=== PATIENT | male | born 1960 | race Caucasian/White ===

== ENCOUNTER 2019-01-03 11:53 | Inpatient (IN) | payer BC, OTHER ==
[~2019-01-03] VITALS: Ht 177.8 cm; Wt 98.9 kg
[2019-01-03] VITALS (217 sets, daily range): BP systolic 87–89; BP diastolic 59–60; PULSE 83–85; TEMP 98.2; O2SAT 76–100
[2019-01-03 12:52] LABS: ARTERIAL BLD GAS O2 SATURATION 91.9 % (92-100); ARTERIAL BLD GAS TCO2 CT 19.4; ARTERIAL BLOOD GAS BASE EXCESS -4.4 (-2-2); ARTERIAL BLOOD GAS HCO3 18.6 meq/L (22-26); ARTERIAL BLOOD GAS PCO2 26.5 mmHg (35-45); ARTERIAL BLOOD GAS pH 7.46 (7.35-7.45)
[2019-01-03 13:28] LABS: MEAN CELL VOLUME 71 fl (80.0-100.0); MEAN CORPUSCULAR HGB CONC 31 g/dl (33.0-37.0); MEAN PLATELET VOLUME 9.9 fl (7.4-10.4); PLATELET COUNT 290 K/mm3 (130-400); RED BLOOD COUNT 3.31 M/mm3 (4.20-5.60); REDCELL DISTRIBUTION WIDTH-CV 17.8 % (11.5-14.5)
[2019-01-03 13:33] LABS: ALBUMIN 2.6 gm/dL (3.5-5.0); BILIRUBIN,TOTAL 0.6 mg/dL (0.0-1.0); CALCIUM 9.2 mg/dL (8.4-10.2); CREATININE, serum 1.1 (0.66-1.25); HEMATOCRIT 23.5 % (42.0-52.0); HEMOGLOBIN 7.2 g/dl (13.5-18.0); MEAN CORPUSCULAR HEMOGLOBIN 22 pg (27.0-31.0); POTASSIUM 4.6 mmol/L (3.4-5.0); TOTAL PROTEIN 6.1 gm/dL (6.4-8.2)
[2019-01-03 13:43] LABS: TROPONIN-I 0.016 ng/mL (0.000-0.035)
[2019-01-03 13:45] LABS: BAND 35 % (0-10); LYMPHOCYTE 11 % (20.0-51.0); NEUTROPHILS 49 % (42.0-75.2); PLATELET ESTIMATE NORMAL (NORMAL)
[2019-01-03] MEDS ORDERED: ASPIRIN 81M81 MG/TA2 PO (16:04)
[2019-01-03] MEDS ORDERED: COREG 6.256.25 MG/TA PO (16:05)
[2019-01-03] MEDS ORDERED: BACTRIM DS 8001 TAB PO (16:06)
[2019-01-03] MEDS ORDERED: LIPITOR 10MG10 MG PO (16:07)
[2019-01-03] MEDS ORDERED: NEURONTIN100 MG/CAP PO (16:07)
[2019-01-03] MEDS ORDERED: GLUCOPHAGE1000 MG PO (16:08)
[2019-01-03] MEDS ORDERED: PRINIVIL5 MG PO (16:08)
[2019-01-03] MEDS ORDERED: XARELTO20 MG PO (16:09)
[2019-01-03] MEDS ORDERED: BASAGLAR K100 UNIT/1 SQ (16:10)
[2019-01-03] MEDS ORDERED: NOVOLOG FLEX100 U/ML SQ (16:10)
[2019-01-03] MEDS ORDERED: MASON NATURAL S1 CAP PO (16:11)
[2019-01-03 18:32] LABS: IRON,SERUM 12 ug/dL (35-150)
[2019-01-03 18:41] LABS: TOTAL IRON BINDING CAPACITY 152 ug/dL (261-462)
[2019-01-03 19:08] LABS: FERRITIN 490 ng/mL (18-464)
[2019-01-03 19:16] LABS: MAGNESIUM 1.5 mg/dL (1.6-2.3); PHOSPHOROUS 4.3 mg/dL (2.5-4.5)
[2019-01-03 19:28] LABS: TROPONIN-I 3 HR POST INITIAL < 0.012 ng/mL (0.000-0.034)
--- NOTE | 2019-01-03 19:30 | NUR ---
Bedside report received from River Posadas RN. Pt resting in bed at this time with girlfriend at bedside "waiting for Dr. Diane" to arrive for assessment and plan.
--- NOTE | 2019-01-03 19:41 | NUR ---
Bedside report given to AIMEE Florez.
--- NOTE | 2019-01-03 20:34 | NUR ---
Admission assessment complete at this time. Plan of care reviewed at bedside with patient. Additional time taken to address any other needs or concerns.
[2019-01-04] VITALS (606 sets, daily range): BP systolic 79–128; BP diastolic 48–81; PULSE 81–111; TEMP 97.7–102.1; O2SAT 67–100
--- NOTE | 2019-01-04 01:15 | NUR ---
Pt noted to be sleeping at this time with sats dropping into the lower 90's. Applied 2L oxygen via NC with improvement in sats noted.
--- NOTE | 2019-01-04 03:20 | NUR ---
Prior to completion of 1 unit of PRBC's pts temp/ VS were assessed and demonstrated elevated temp of 102.1. Multiple thermometers were used in addition to temp chekced orally and axillary with the same results of elevated temp. supervisor finishing was notified first due to being on the unit at this time. Tawanna Palacios APRN was notified and reported to notify EICU for further instructions. EICU notified with orders to follow facility protocol and written orders for Tylenol. supervisor finishing notified blood bank which started the reaction protocol at this time.
[2019-01-04 06:10] LABS: COLLECTION METHOD CLEAN CATCH
--- NOTE | 2019-01-04 06:10 | NUR ---
Blood bank called to notify this nurse that pathology reported reaction of transfusion as a "febrile reaction." No further units ordered/ pending at this time.
[2019-01-04 06:21] LABS: INR 1.4 (0.8-3.0); PROTHROMBIN TIME 16.3 SECONDS (9.7-12.8)
[2019-01-04 06:22] LABS: MEAN CELL VOLUME 73 fl (80.0-100.0); MEAN CORPUSCULAR HGB CONC 31 g/dl (33.0-37.0); MEAN PLATELET VOLUME 10.3 fl (7.4-10.4); PLATELET COUNT 263 K/mm3 (130-400); RED BLOOD COUNT 3.32 M/mm3 (4.20-5.60); REDCELL DISTRIBUTION WIDTH-CV 18.6 % (11.5-14.5)
[2019-01-04 06:24] LABS: HEMATOCRIT 24.3 % (42.0-52.0); HEMOGLOBIN 7.4 g/dl (13.5-18.0); MEAN CORPUSCULAR HEMOGLOBIN 22 pg (27.0-31.0)
[2019-01-04 06:29] LABS: AMORPHOUS CRYSTAL Present /uL; MUCOUS Present /lpf; PH 5 (5-8); SQUAMOUS EPITHELIAL 0-2 /hpf; URINE APPEARANCE Cloudy; URINE BACTERIA None Seen /hpf; URINE BILIRUBIN Negative (NEGATIVE); URINE BLOOD 2+ (NEGATIVE); URINE COLOR Yellow; URINE GLUCOSE 1+ (NEGATIVE); URINE KETONE Negative (NEGATIVE); URINE LEUKOCYTE ESTERASE Negative (NEGATIVE); URINE NITRATE Negative (NEGATIVE); URINE PROTEIN(semi-quant) 2+ (NEGATIVE); URINE UROBILINOGEN Negative (NEGATIVE)
[2019-01-04 06:30] LABS: ALBUMIN 2.4 gm/dL (3.5-5.0); BILIRUBIN,TOTAL 0.7 mg/dL (0.0-1.0); CALCIUM 8.9 mg/dL (8.4-10.2); CREATININE, serum 0.75 (0.66-1.25); MAGNESIUM 1.5 mg/dL (1.6-2.3); TOTAL PROTEIN 5.8 gm/dL (6.4-8.2)
--- NOTE | 2019-01-04 07:00 | NUR ---
BEDSIDE REPORT RECIEVED FROM AIMEE RODRIGUEZ.
--- NOTE | 2019-01-04 07:10 | NUR ---
Bedside report provided to Ted Galan RN. Pt resting in bed at this time interactive intermittently in report.
[2019-01-04 07:13] LABS: BAND 37 % (0-10); EOSINOPHIL 1 % (0-4); LYMPHOCYTE 15 % (20.0-51.0); MYELOCYTE 1 % (0-0); NEUTROPHILS 45 % (42.0-75.2)
[2019-01-04 07:14] LABS: ANISOCYTOSIS 2+; HYPOCHROMIA 2+; OVALOCYTES 1+; PLATELET ESTIMATE NORMAL (NORMAL)
[2019-01-04 11:36] LABS: INR 1.5 (0.8-3.0); PROTHROMBIN TIME 17.9 SECONDS (9.7-12.8)
[2019-01-04 11:42] LABS: HEMATOCRIT 26.4 % (42.0-52.0)
--- NOTE | 2019-01-04 12:05 | NUR ---
First visit from the vocational case manager. No needs right now.
--- NOTE | 2019-01-04 13:20 | NUR ---
PATIENT LEAVING FLOOR TO OR FOR LEFT BELOW THE KNEE AMPUTATION.
--- NOTE | 2019-01-04 13:26 | NUR ---
SW attended clinical rounds. Patient will have a BKA today. Patient lives independently at home and works for the [employer]. Patient's PCP is Dr Mao Gill in [place] and he obtains prescriptions from [facility]. Patient report he does not normally have difficuly affording his medications. Patient reports his insurance covers most medication cost. Patient does not normally use any DME but he has used crutches for the last 3 months due to his foot ulcer. Patient does not have a DPOA-HC but is working on getting a living will in place. KEDAR informed patient that if he would like to complete a DPOA-HC, SW can provide the form. Patient reports his daughter, Nevin, would be the person he would designate. SW will follow up with patient about DPOA-HC after patient's surgery. SW also repoted that patient may require post acute rehab after the amputation. Patient will be seen by PT/OT before discharge to give recommendations. SW will continue to follow and assist with discharge needs.
--- NOTE | 2019-01-04 15:00 | NUR ---
REPORT GIVEN TO AIMEE KHAN.
--- NOTE | 2019-01-04 15:10 | NUR ---
Report received from Albino rGaham. Pt currently in surgery for left BKA.
--- NOTE | 2019-01-04 15:49 | NUR ---
PATIENT BACK FROM OR ON 3L OXYGEN AND NS DRIP. REATTACHED TO SEWING MACHINE REPAIRER. VITALS TAKEN. DRESSING TO LEFT LOWER EXTREMITY COVERED IN WILLIAN BANDAGES (CLEAN, DRY, AND INTACT). KNEE IMOBILIZER IN PLACE.
--- NOTE | 2019-01-04 15:55 | NUR ---
Pt remains drowsy after surgery. Opens eyes to name, denies any pain at this time. Oriented x3. SBP 90s, MAP in 60s. HR SR 80s on monitor. IVF infusing through right upper arm PICC. Pt s/p left BKA. Left leg wrapped in bret bandage and immobilizer on, elevated on pillow. Drsg c/d/i. Assessment completed. Call light in reach.
--- NOTE | 2019-01-04 18:00 | NUR ---
Pt RAYMON Diana at bedside. Updated on pt status. Pt remains resting in bed. Left leg elevated on pillow. bret bandage C/D/I, immobilizer on left knee. VSS. Will monitor.
[2019-01-04 18:09] LABS: HEMATOCRIT 28.5 % (42.0-52.0); HEMOGLOBIN 8.6 g/dl (13.5-18.0)
[2019-01-04 18:18] LABS: PHOSPHOROUS 3.8 mg/dL (2.5-4.5); POTASSIUM 4.3 mmol/L (3.4-5.0)
--- NOTE | 2019-01-04 19:21 | NUR ---
report given to AIMEE Warner
[2019-01-05] VITALS (900 sets, daily range): BP systolic 86–114; BP diastolic 45–70; PULSE 93–116; TEMP 94.5–99.9; O2SAT 74–100
--- NOTE | 2019-01-05 01:10 | NUR ---
CALLED [facility] REGARDINGPATIENTS HEART LEVY AND RHYTHM. GAVE THE OKAY TO ORDER AN EKG. WILL MONITOR PATIENT.
--- NOTE | 2019-01-05 01:46 | NUR ---
CALLED EICU TO DISCUUS PATIENS HEART RATE, HEART RHYTHM, TEMPERATURE, AND OVERALL STATUS. AIMEE TIERNEY SAID HE WOULD SPEAK WITH DR. GALVEZ AND GET BACK WITH ME SOON POSSIBLE. WILL CONTINUE TO MONITOR PATIENT.
--- NOTE | 2019-01-05 03:29 | NUR ---
called eicu regarding patients status. patients blood pressure did not increase after intitial [address] martínez ordered an additional 500 cc fluid bolus. blood pressures still did not increase. metoprolol push is going to be DC's and patient will be started on an amiodarone drip.
--- NOTE | 2019-01-05 04:16 | NUR ---
PATIENT HAS CHANGED ALOT FROM THE BEGINNING OF THE SHIFT. I HAVE BEEN ON THE PHONE NUMEROUS TIMES WITH EICU REGARDING PATIENTS HEART RATE, BLOOD PRESSURE, COLOR, AND OVERALL APPEARANCE. PATIENTS HEART RATE HAS BEEN VARY TACHYCARDIC. HE DEVELOPED ATRIAL FIBRILLATION A LITTLE AFTER ONE IN THE MORNING. EVER SINCE THEN HE HAS BEEN SUFFERING FROM HYPOTENSION AND HAS BEEN VERY DIAPHORETIC. PATIENT IS CURRENTLY ON AN AMIODARONE DRIP. PLAN IS TO HOLD OFF ON THE LEVOPHED DRIP AND SEE WHAT PATIENTS LABS COME BACK . WILL CONTINUE TO MONITOR PATIENT.
[2019-01-05 05:16] LABS: MEAN CELL VOLUME 74 fl (80.0-100.0); MEAN CORPUSCULAR HGB CONC 31 g/dl (33.0-37.0); MEAN PLATELET VOLUME 9.9 fl (7.4-10.4); PLATELET COUNT 217 K/mm3 (130-400); RED BLOOD COUNT 3.47 M/mm3 (4.20-5.60); REDCELL DISTRIBUTION WIDTH-CV 18.8 % (11.5-14.5)
[2019-01-05 05:17] LABS: INR 1.6 (0.8-3.0); PROTHROMBIN TIME 18.7 SECONDS (9.7-12.8)
[2019-01-05 05:26] LABS: ALBUMIN 2.1 gm/dL (3.5-5.0); BILIRUBIN,TOTAL 0.7 mg/dL (0.0-1.0); CREATININE, serum 0.58 (0.66-1.25); MAGNESIUM 2.3 mg/dL (1.6-2.3); POTASSIUM 3.5 mmol/L (3.4-5.0); TOTAL PROTEIN 5.2 gm/dL (6.4-8.2)
[2019-01-05 05:49] LABS: HEMATOCRIT 25.7 % (42.0-52.0); HEMOGLOBIN 7.9 g/dl (13.5-18.0); MEAN CORPUSCULAR HEMOGLOBIN 23 pg (27.0-31.0)
[2019-01-05 06:39] LABS: ANISOCYTOSIS 2+; BAND 73 % (0-10); HYPOCHROMIA 1+; LYMPHOCYTE 6 % (20.0-51.0); METAMYELOCYTE 2 % (0-0); NEUTROPHILS 13 % (42.0-75.2); PLATELET ESTIMATE NORMAL (NORMAL)
[2019-01-05 06:40] LABS: BURR CELLS 1+; OVALOCYTES 1+
--- NOTE | 2019-01-05 07:52 | NUR ---
gave report to yannick briscoe.
--- NOTE | 2019-01-05 08:00 | NUR ---
Shift assessment complete at this time. Plan of care reviewed at bedside with patient. Additional time taken to address any other needs or concerns. Vitals stable at bedside. Bed in low position, call light within reach, will continue to monitor.
[2019-01-05 11:07] LABS: HEMATOCRIT 30.1 % (42.0-52.0); HEMOGLOBIN 9.2 g/dl (13.5-18.0)
--- NOTE | 2019-01-05 11:18 | NUR ---
Patient was sleeping.
--- NOTE | 2019-01-05 12:00 | NUR ---
Shift reassessment complete at this time. No changes from previous assessment noted. Vitals stable. Pt reports pain as improving gradually. Bed in low position, call light within reach. Will continue to monitor.
[2019-01-05 15:46] LABS: URINE PROTEIN:CREAT RATIO 0.73 (0.00-0.14)
--- NOTE | 2019-01-05 16:00 | NUR ---
Shift reassessment complete at this time. No changes from previous assessment noted. Pt hypothermic with a core temp of 35.0 degrees Celcius. When attempting to warm Pt became extremely diaphoretic. Dr. Zarco notified of diaphoresis and would like to stop actively warming and monitor Pt's temperature. Pt reports continually improving pain with PRN [place]. All other vitals stable. Pt denies any other complaints or concerns. Bed in low position, call light within reach, will continue to monitor.
[2019-01-05 16:30] LABS: CREATININE, serum 0.57 (0.66-1.25); SODIUM 132 mmol/L (137-145)
--- NOTE | 2019-01-05 19:20 | NUR ---
Bedside report given to AIMEE Warner.
[2019-01-06] VITALS (1071 sets, daily range): BP systolic 83–102; BP diastolic 61–76; PULSE 82–107; TEMP 36.1; O2SAT 78–100
[2019-01-06 05:39] LABS: MEAN CELL VOLUME 77 fl (80.0-100.0); MEAN CORPUSCULAR HGB CONC 30 g/dl (33.0-37.0); MEAN PLATELET VOLUME 10.1 fl (7.4-10.4); PLATELET COUNT 241 K/mm3 (130-400); RED BLOOD COUNT 4.18 M/mm3 (4.20-5.60); REDCELL DISTRIBUTION WIDTH-CV 18.8 % (11.5-14.5)
[2019-01-06 05:40] LABS: HEMATOCRIT 32.1 % (42.0-52.0); HEMOGLOBIN 9.7 g/dl (13.5-18.0); MEAN CORPUSCULAR HEMOGLOBIN 23 pg (27.0-31.0)
[2019-01-06 05:48] LABS: BILIRUBIN,TOTAL 0.5 mg/dL (0.0-1.0); CALCIUM 7.9 mg/dL (8.4-10.2); CREATININE, serum 0.63 (0.66-1.25); TOTAL PROTEIN 5.1 gm/dL (6.4-8.2)
[2019-01-06 05:57] LABS: INR 2.1 (0.8-3.0); PROTHROMBIN TIME 25.3 SECONDS (9.7-12.8)
[2019-01-06 06:09] LABS: ANISOCYTOSIS 2+; BAND 58 % (0-10); HYPOCHROMIA 1+; LYMPHOCYTE 3 % (20.0-51.0); NEUTROPHILS 35 % (42.0-75.2); PLATELET ESTIMATE NORMAL (NORMAL)
[2019-01-06 06:10] LABS: BURR CELLS 1+; OVALOCYTES 1+
--- NOTE | 2019-01-06 07:12 | NUR ---
gave report to yannick briscoe.
--- NOTE | 2019-01-06 08:00 | NUR ---
Shift assessment complete at this time. Plan of care reviewed at bedside with patient. Additional time taken to address any other needs or concerns. Pt reports mild phantom pain in L lower extremity. Vitals stable at this time. Pt significantly less hypothermic than previous shift. Temperature currently 35.6 Celcius. Bed in low position, call light within reach, will continue to monitor.
--- NOTE | 2019-01-06 12:00 | NUR ---
Shift reassessment complete at this time. No changes from previous assessment. Vitals stable at this time. Pt reports mild pain and requests another dose of PRN hydrocodone when it is available. Denies any other discomfort at this time. Bed in low position, call light within reach. Will continue to monitor.
--- NOTE | 2019-01-06 16:00 | NUR ---
Shift reassessment complete at this time. No changes from previous assessments noted. Vitals stable. Pt reports mild pain and request to have scheduled hydrocodone when it is available. Pt denies any other complaints or concerns. Bed in low position, call light within reach. Will continue to monitor.
--- NOTE | 2019-01-06 19:20 | NUR ---
Bedside report received from River. Pt resting in bed with girlfriend at bedside. Left leg assessed at this time with dressing and immobilizer intact.
--- NOTE | 2019-01-06 19:29 | NUR ---
bedside report given to AIMEE Florez.
[2019-01-07] VITALS (830 sets, daily range): BP systolic 94–122; BP diastolic 71–102; PULSE 88–120; TEMP 36.3–36.4; O2SAT 69–100
--- NOTE | 2019-01-07 03:00 | NUR ---
Pt has just been assisted with placement of the bed guillen for the third time this shift. Pt has requested to sit on the bedpan for extended periods of time due to being "afraid that if I fart, there might be more with it." Fear was discussed as well as protection of the bottom. Need to review through out shift as well as multiple times prior to leaving the room while pt is on the bedpan of use of the bedpan associated with use of a toilet in order to protect the skin, no extended periods of use at one time.
[2019-01-07 04:39] LABS: MEAN CELL VOLUME 77 fl (80.0-100.0); MEAN CORPUSCULAR HGB CONC 30 g/dl (33.0-37.0); MEAN PLATELET VOLUME 10.1 fl (7.4-10.4); PLATELET COUNT 312 K/mm3 (130-400); RED BLOOD COUNT 4.22 M/mm3 (4.20-5.60); REDCELL DISTRIBUTION WIDTH-CV 19.4 % (11.5-14.5)
[2019-01-07 04:41] LABS: HEMATOCRIT 32.6 % (42.0-52.0); HEMOGLOBIN 9.8 g/dl (13.5-18.0); MEAN CORPUSCULAR HEMOGLOBIN 23 pg (27.0-31.0)
[2019-01-07 04:55] LABS: ALBUMIN 2.2 gm/dL (3.5-5.0); BILIRUBIN,TOTAL 0.2 mg/dL (0.0-1.0); C-REACTIVE PROTEIN 8.2 mg/dL (0.0-0.9); CREATININE, serum 0.64 (0.66-1.25); MAGNESIUM 2.3 mg/dL (1.6-2.3); PHOSPHOROUS 2.3 mg/dL (2.5-4.5); POTASSIUM 4.1 mmol/L (3.4-5.0); TOTAL PROTEIN 5.7 gm/dL (6.4-8.2)
[2019-01-07 05:07] LABS: BAND 43 % (0-10); BURR CELLS 1+; LYMPHOCYTE 3 % (20.0-51.0); NEUTROPHILS 49 % (42.0-75.2); OVALOCYTES 1+
--- NOTE | 2019-01-07 07:20 | NUR ---
Bedside report provided to Neva Camacho RN. Pt resting in bed at this time. Requested the bed guillen at this time. Was assisted with placement. Pt is able to move side to side in bed X1 staff assist.
--- NOTE | 2019-01-07 08:00 | NUR ---
PT HAS LEFT BKA, THAT WAS DRESSED THIS AM BEFORE SHIFT CHANGE WITH KNEE IMMOBILIZER. DRESSING IS NOT TO BE REMOVED UNTIL FOLLOW-UP APT IN TWO WEEKS. PT DENIES PAIN AT THIS TIME.
--- NOTE | 2019-01-07 13:12 | NUR ---
SW attended clinical rounding. Patient is going to transfer to the floor today if there is a bed. He reports he has a walker and his friends were putting in a wheelchair ramp yesterday for him. If patient needs to do IV antibiotics he [facility] to [facility]. SW to follow PT and OT screens for discharge needs.
--- NOTE | 2019-01-07 14:08 | NUR ---
KEDAR met with patient to discuss PTs recommendation of IPR. SW presented choice form and discussed options. Patient would like a referral sent to [facility] since he is already in the hosptial. KEDAR called Sheri, IPR director, and made referral. Patient is also interested in getting a wheelchair.
--- NOTE | 2019-01-07 16:29 | NUR ---
PT TO FLOOR AT 1629 VIA WC
--- NOTE | 2019-01-07 17:05 | NUR ---
Patient to room 322-2. Report from ICU nurse. Patient settled in room, assessment completed. Patient REECE drgs intact. Patient transfered from wheelchair to bed 2 assist with wheelchair & gaitbelt. Scds & eloy to RLE. Patient to be medicated with novolog per orders for elevated blood glucose. Will monitor.
--- NOTE | 2019-01-07 21:00 | NUR ---
Patient in bed, has brace to left leg, has BKA with drsg dry and intact. Has SCD and CANDE hose to right leg. Has PICC to right upper arm without redness or swelling. Is alert and oriented x4. Tele shows Afib. Denies pain.
--- NOTE | 2019-01-07 23:02 | NUR ---
REPOSITIONED TO RIGHT SIDE, PILLOW TO BACK AND UNDER LEFT LEG.
[2019-01-08 00:08] VITALS: BP 119/64; PULSE 114; TEMP 97.7
[2019-01-08 03:51] VITALS: BP 114/79; PULSE 109; TEMP 98.1
[2019-01-08 07:12] VITALS: BP 120/74; PULSE 110; TEMP 97.7
--- NOTE | 2019-01-08 08:00 | NUR ---
Patient in bed resting. Alert and oriented x 3. Shift assessment complete. Alonso wrap dressing to left lower extremity is CDI. LLE in brace. Patient states phantom limb pain intermittently, shooting 5/10. Refuses medication at this time. Michelle to dependent drainage with clear yellow urine present in bag. PICC line to right upper arm without complications. Denies further needs at this time.
[2019-01-08 08:31] LABS: MEAN CELL VOLUME 76 fl (80.0-100.0); MEAN CORPUSCULAR HEMOGLOBIN 23 pg (27.0-31.0); MEAN CORPUSCULAR HGB CONC 30 g/dl (33.0-37.0); MEAN PLATELET VOLUME 9.3 fl (7.4-10.4); PLATELET COUNT 374 K/mm3 (130-400); RED BLOOD COUNT 4.41 M/mm3 (4.20-5.60); REDCELL DISTRIBUTION WIDTH-CV 20.3 % (11.5-14.5)
[2019-01-08 08:44] LABS: CALCIUM 8.1 mg/dL (8.4-10.2); CREATININE, serum 0.57 (0.66-1.25); PHOSPHOROUS 1.8 mg/dL (2.5-4.5); POTASSIUM 3.9 mmol/L (3.4-5.0)
[2019-01-08 08:45] LABS: HEMATOCRIT 33.6 % (42.0-52.0)
[2019-01-08] MEDS ORDERED: FLOMAX 0.40.4 MG/CAP PO (09:02)
[2019-01-08] MEDS ORDERED: TOPROL XL 50MG50 MG PO (09:03)
[2019-01-08] MEDS ORDERED: PACERONE200 MG PO (09:05)
[2019-01-08] MEDS ORDERED: LIPITOR20 MG PO (09:06)
[2019-01-08] MEDS ORDERED: LASIX 20MG TABL20 MG PO (09:06)
[2019-01-08] MEDS ORDERED: NEURONTIN100 MG/CAP PO (09:07)
[2019-01-08] MEDS ORDERED: NORCO 325 MG-7.1 TAB PO (09:07)
[2019-01-08] MEDS ORDERED: DULCOLAX S10 MG/SUPP RC (09:08)
[2019-01-08] MEDS ORDERED: MIRALAX PA17 GM/Dose PO (09:08)
[2019-01-08] MEDS ORDERED: COLACE 100100 MG/CAP PO (09:08)
[2019-01-08] MEDS ORDERED: GOOD NEIGH1200 MG/15 PO (09:08)
[2019-01-08] MEDS ORDERED: TYLENOL 325MG325 MG PO (09:08)
[2019-01-08] MEDS ORDERED: NOVOLOG FLEX100 U/ML SQ (09:09)
[2019-01-08] MEDS ORDERED: BASAGLAR K100 UNIT/1 SQ (09:09)
[2019-01-08 09:46] LABS: ANISOCYTOSIS 2+; BAND 3 % (0-10); EOSINOPHIL 2 % (0-4); HYPOCHROMIA 2+; LYMPHOCYTE 8 % (20.0-51.0); METAMYELOCYTE 1 % (0-0); NEUTROPHILS 78 % (42.0-75.2); PLATELET ESTIMATE NORMAL (NORMAL); POLYCHROMASIA 1+
[2019-01-08 09:48] LABS: MICROCYTOSIS 1+
--- NOTE | 2019-01-08 10:18 | NUR ---
Cinthya, IPR Director, reports that they can accept the patient; but that she will need to get prior-auth from the patient's insurance. SW to continue to follow.
[2019-01-08] MEDS ORDERED: BD POSIFLUSH SF10 ML IV (10:26)
--- NOTE | 2019-01-08 11:16 | NUR ---
Michelle catheter discotinued. 6ml of fluid removed from balloon. Tolerated procedure well. Denies further needs at this time.
[2019-01-08 11:56] VITALS: BP 109/69; PULSE 103; TEMP 98
[2019-01-08] MEDS ORDERED: ROCEPHIN 2GM VIAL21 IV (14:09)
--- NOTE | 2019-01-08 14:24 | NUR ---
IPR Director, Cinthya, received authorization from the patient's insurance. The patient is to discharge today, 01/08, to [facility]. No additional needs at this time.
--- NOTE | 2019-01-08 15:07 | NUR ---
Patient transfering to [facility], Report given to Alma Rosa YU. Has been up to comode x2 assist. Denies further needs a this time.
== END 2019-01-08 15:09 | DRG 853 ==
LOC: COL.ER 11:53 → SURG 13:16 → ICU 13:16 → SURG 01-07 16:31
PROVIDERS: Family Medicine; Internal Medicine Nephrology; Internal Medicine Pulmonary Disease; Nurse Anesthetist, Certified Registered; Nurse Practitioner Family; Orthopaedic Surgery; Physician Assistant; ADMIT Internal Medicine
PROC: 02HV33Z Insertion of Infusion Device into Superior Vena Cava, Percutaneous Approach (ICD-10-PCS; 2019-01-03)
PROC: 0Y6J0Z1 Detachment at Left Lower Leg, High, Open Approach (ICD-10-PCS; principal; 2019-01-04 14:00)
DX: A41.9 Sepsis, unspecified organism (principal); R65.21 Severe sepsis with septic shock; M86.9 Osteomyelitis, unspecified; E87.1 Hypo-osmolality and hyponatremia; N17.9 Acute kidney failure, unspecified; I50.22 Chronic systolic (congestive) heart failure; E11.621 Type 2 diabetes mellitus with foot ulcer; I11.0 Hypertensive heart disease with heart failure; L97.529 Non-pressure chronic ulcer of other part of left foot with unspecified severity; E11.65 Type 2 diabetes mellitus with hyperglycemia; E11.610 Type 2 diabetes mellitus with diabetic neuropathic arthropathy; I27.20 Pulmonary hypertension, unspecified; I48.91 Unspecified atrial fibrillation; E88.09 Other disorders of plasma-protein metabolism, not elsewhere classified; E11.40 Type 2 diabetes mellitus with diabetic neuropathy, unspecified; D50.0 Iron deficiency anemia secondary to blood loss (chronic); I25.10 Atherosclerotic heart disease of native coronary artery without angina pectoris; E11.69 Type 2 diabetes mellitus with other specified complication; Z79.82 Long term (current) use of aspirin; Z79.4 Long term (current) use of insulin; Z95.5 Presence of coronary angioplasty implant and graft; Z87.891 Personal history of nicotine dependence
CPT/HCPCS: 99233-AI; 99239; C1751; C1892; J0282; J0696; J1720; J1815; J2250; J2270; J2543; J2704; J2795; J3010; J3370; J3475; J7030; J7040; J7050; J7060; L1830; P9016

== ENCOUNTER 2019-01-08 14:35 | Inpatient (IN) | payer BC, OTHER ==
[~2019-01-08] VITALS: Ht 180.3 cm; Wt 89.0 kg
[~2019-01-08 14:35] MED LIST: ASPIRIN 81M81 MG/TA2 PO; BACTRIM DS 8001 TAB PO; BASAGLAR K100 UNIT/1 SQ; BD POSIFLUSH SF10 ML IV; COLACE 100100 MG/CAP PO; COREG 6.256.25 MG/TA PO; DULCOLAX S10 MG/SUPP RC; FLOMAX 0.40.4 MG/CAP PO; GLUCOPHAGE1000 MG PO; GOOD NEIGH1200 MG/15 PO; LASIX 20MG TABL20 MG PO; LIPITOR 10MG10 MG PO; LIPITOR20 MG PO; MASON NATURAL S1 CAP PO; MIRALAX PA17 GM/Dose PO; NEURONTIN100 MG/CAP PO; NORCO 325 MG-7.1 TAB PO; NOVOLOG FLEX100 U/ML SQ; PACERONE200 MG PO; PRINIVIL5 MG PO; ROCEPHIN 2GM VIAL21 IV; TOPROL XL 50MG50 MG PO; TYLENOL 325MG325 MG PO; XARELTO20 MG PO
[2019-01-08 16:10] VITALS: BP 114/73; PULSE 109; TEMP 98
[2019-01-08 16:16] VITALS: BP 114/73; PULSE 109; TEMP 98
--- NOTE | 2019-01-08 16:48 | NUR ---
Report from AIMEE Elkins. Pt came over from surgical unit to IPR in wheelchair, LLE dressing and immobilizer intact, pt in recliner with foot rest up, yellow gown in place, PICC band to R wrist. Pt relates he wants to be a DNR. A&O, flat affect.
[2019-01-08 18:37] VITALS: BP 114/73; PULSE 103; TEMP 98
--- NOTE | 2019-01-08 19:14 | NUR ---
Report to ARUN Mullen that pt has shilpa S1 to buttocks, in chair with alarm on, immobilizer in place, dressing intact. Continent. Needs 5 pg and BIMs done
[2019-01-09 05:47] VITALS: BP 118/70; PULSE 98; TEMP 97.7
--- NOTE | 2019-01-09 05:47 | NUR ---
Patient rested intermittently during the night. Patient was up frequently to void in the urinal. Patient was able to void between 250-300ml each time. Patient was able to change positions in the bed with minimal to assistance from staff, but does not use the call light for assistance before sitting on the bedside to use the urinal. It is reported that the patient's blood sugar was 59 this morning. Vernonia juice and crackers given, will re check. Patient denies needs at this time, call light within reach.
--- NOTE | 2019-01-09 11:01 | NUR ---
First visit from the brass instrument repair technician. No needs right now.
[2019-01-09 16:17] VITALS: BP 100/57; PULSE 90; TEMP 98.2
--- NOTE | 2019-01-09 17:28 | NUR ---
KEDAR met with the patient to complete intitial intake, as the patient is new to [facility]. The patient lives in [place] and he states his girlfriend, Adalgisa, stays with him. He states his daughter, Nevin, lives in [place] also. He reports independence with ADLs prior to IPR and has crutches and a walker. The patient's PCP is Dr. Mao Gill and he receives his medications at [facility] on [address]. He reports no difficulties obtaining his meds. Financial Counselor, Tommy, met with the patient and completed a Medicaid application with him. The patient does not have advanced directives, but he was interested in obtaining a form for DPOA-HC. KEDAR provided. KEDAR then presented and reviewed the IPR Team Conference Note with the patient. KEDAR discussed the plan for re-evaluation next Monday. The patient was in agreeance to the plan. SW to continue to follow to ensure a safe discharge.
--- NOTE | 2019-01-09 17:52 | NUR ---
Patient resting in recliner at this time call light in reach and alarm is on. Pain 09/02 today and reported that Tylenol has been effective. Will continue to monitor.
--- NOTE | 2019-01-09 20:30 | NUR ---
Initial shift assessment done- no requests at this time- did use urinal and states will call in about an hour for the bathroom, brace on left stump, pain 10/03-will give Tylenol with night meds, PICC to ZEV-
--- NOTE | 2019-01-09 21:00 | NUR ---
Patient attended all therapies today. Received a piece of sheeps wool to help with any pressure issues to the back of his immobilizer. Received call from Dr. Diane's office stating that patient has an appointment on 01/16/19 at 2:30 PM next week. Staff is to call if he will not be discharged by that date.
--- NOTE | 2019-01-10 01:25 | NUR ---
Requesting blood sugar to be checked, result 111 did have a small juice at this time,{ did have a snack before bed also tonight}
[2019-01-10 05:42] VITALS: BP 128/80; PULSE 107; TEMP 97.5
--- NOTE | 2019-01-10 05:45 | NUR ---
Blood sugar 59 this morning- juice given , does not want tylenol till before therapy this morning, PICC to ZEV- both ports flushed well and good blood return
[2019-01-10 07:24] LABS: MEAN CELL VOLUME 76 fl (80.0-100.0); MEAN CORPUSCULAR HGB CONC 30 g/dl (33.0-37.0); MEAN PLATELET VOLUME 9.6 fl (7.4-10.4); PLATELET COUNT 365 K/mm3 (130-400); RED BLOOD COUNT 4.11 M/mm3 (4.20-5.60); REDCELL DISTRIBUTION WIDTH-CV 20.9 % (11.5-14.5)
[2019-01-10 07:25] LABS: HEMATOCRIT 31.4 % (42.0-52.0); HEMOGLOBIN 9.5 g/dl (13.5-18.0); MEAN CORPUSCULAR HEMOGLOBIN 23 pg (27.0-31.0)
[2019-01-10 07:39] LABS: CREATININE, serum 0.5 (0.66-1.25); PHOSPHOROUS 3.8 mg/dL (2.5-4.5); POTASSIUM 3.6 mmol/L (3.4-5.0)
[2019-01-10 09:02] LABS: ANISOCYTOSIS 1+; BAND 10 % (0-10); EOSINOPHIL 2 % (0-4); HYPOCHROMIA 2+; LYMPHOCYTE 14 % (20.0-51.0); METAMYELOCYTE 1 % (0-0); MICROCYTOSIS 1+; NEUTROPHILS 65 % (42.0-75.2); PLATELET ESTIMATE NORMAL (NORMAL)
--- NOTE | 2019-01-10 13:04 | NUR ---
PICC caps were changed out today.
--- NOTE | 2019-01-10 15:12 | NUR ---
The patient completed DPOA-HC. He first designated his sister, Giselle Michelle, and alternate is his daughter, Nevin Fairchild. KEDAR and the patient's IC ENGINEER witnessed the patient's signature. The patient was provided with the original and some copies. A copy was placed in the patient's chart. KEDAR then discussed having a family meeting next Monday, 01/16. The patient reports that his daughter will not be able to come, because she is being induced on Monday. He states this his girlfriend should be able to come, but that he will need to check with her. KEDAR to follow up with the patient tomorrow. KEDAR to continue to follow.
[2019-01-10 15:14] VITALS: BP 94/51; PULSE 99; TEMP 98.1
--- NOTE | 2019-01-10 15:45 | NUR ---
PICC intact right upper arm. With sterile technique right upper arm PICC dressing change done with insertion site cleansed with ChloraPrep 1, chlorhexidine impregnated disc applied, skin prep, StatLock, and Tegaderm applied. No signs or symptoms of IV complications noted. no concerns voiced. Arm wrapped with Alonso to protect catheter.
--- NOTE | 2019-01-10 16:40 | NUR ---
Patient has a Stage I to coccyx area - Reddened - applied barrier cream to area. Will continue to monitor. Patient refusted air mattress. Has cushion to recliner. Attended all therapies today. Tolerating diet well and reports that he likes the Bryce.
--- NOTE | 2019-01-10 22:30 | NUR ---
pt resting in bed a+o4. reports minimal pain- denied needs for intervention. / in left leg. BG 225- insulin given. assisted to restroom at this time x2. pt transfered well from bed to then from to toilet. right foot covered with mepalex and tedhose. sacreal region- red. no needs at this time. call light in reach.
--- NOTE | 2019-01-10 23:46 | NUR ---
brace sally on left leg- dressing DCI. elevated with pillow. reports no neesd at this time. call light in reach. bed alarm on. independent in bed no turning schedule.
[2019-01-11 05:35] VITALS: BP 122/71; PULSE 125; TEMP 98.8
[2019-01-11 08:13] LABS: MEAN CELL VOLUME 76 fl (80.0-100.0); MEAN CORPUSCULAR HGB CONC 30 g/dl (33.0-37.0); MEAN PLATELET VOLUME 9.2 fl (7.4-10.4); PLATELET COUNT 358 K/mm3 (130-400); RED BLOOD COUNT 4.04 M/mm3 (4.20-5.60); REDCELL DISTRIBUTION WIDTH-CV 20.7 % (11.5-14.5)
[2019-01-11 08:16] LABS: HEMATOCRIT 30.6 % (42.0-52.0); HEMOGLOBIN 9.3 g/dl (13.5-18.0); MEAN CORPUSCULAR HEMOGLOBIN 23 pg (27.0-31.0)
[2019-01-11 08:29] LABS: CALCIUM 8.1 mg/dL (8.4-10.2); CREATININE, serum 0.54 (0.66-1.25); MAGNESIUM 1.6 mg/dL (1.6-2.3); POTASSIUM 4.8 mmol/L (3.4-5.0)
[2019-01-11 08:58] LABS: BAND 5 % (0-10); EOSINOPHIL 1 % (0-4); HYPOCHROMIA 3+; LYMPHOCYTE 12 % (20.0-51.0); NEUTROPHILS 80 % (42.0-75.2); PLATELET ESTIMATE NORMAL (NORMAL)
[2019-01-11 08:59] LABS: ANISOCYTOSIS 1+; POLYCHROMASIA 1+
[2019-01-11 09:49] VITALS: PULSE 84; TEMP 98.8
[2019-01-11 10:05] VITALS: BP 93/57
--- NOTE | 2019-01-11 10:05 | NUR ---
Pt requests info be sent to his residential electrician Dr. Ramsey Dickey at [facility] in [place].
[2019-01-11 11:59] VITALS: BP 107/78; PULSE 98; TEMP 98.2
[2019-01-11 15:19] LABS: COLLECTION METHOD CLEAN CATCH
[2019-01-11 15:29] LABS: MUCOUS Present /lpf; PH 5 (5-8); SQUAMOUS EPITHELIAL None Seen /hpf; URINE APPEARANCE Clear; URINE BACTERIA None Seen /hpf; URINE BILIRUBIN Negative (NEGATIVE); URINE BLOOD Negative (NEGATIVE); URINE COLOR Yellow; URINE GLUCOSE Negative (NEGATIVE); URINE KETONE Negative (NEGATIVE); URINE LEUKOCYTE ESTERASE Negative (NEGATIVE); URINE NITRATE Negative (NEGATIVE); URINE PROTEIN(semi-quant) Negative (NEGATIVE); URINE RBC 0-2 /hpf; URINE UROBILINOGEN Negative (NEGATIVE)
[2019-01-11 16:05] VITALS: BP 104/60; PULSE 116; TEMP 98.5
--- NOTE | 2019-01-11 16:08 | NUR ---
UA d/t pt reporting freq urination overnight, and increased WBCs while on IV Abx
--- NOTE | 2019-01-11 16:27 | NUR ---
Per train control electronic technician, pt has not had more runs of a fib over 110 beats per minute. Per Shirley Gonzalez/Dr. Turner, hold dig IV if not >110
[2019-01-11 20:00] VITALS: BP 114/63; PULSE 94; TEMP 98.3
--- NOTE | 2019-01-11 20:06 | NUR ---
Pt continent of B/B, pivot transfers with one assist and gait belt between chair/wheelchair/toilet. Immobilizer to LLE with dressing. PICC without complications. HR 125 this morning, see orders for EKG, found A. fib with RVR and initiated TELE and meds. Pt c/o urinating freq last noc and initiated and started monitoring intake, orders for 1.5L FR but pt had intake of 2280 ml this shift. Mepilex to Rt bridge of foot, CANDE in place. Superficial Stage II to left inner buttock, pt declined air/foam mattress for bed, seat cushion in place to recliner. Edu pt and SO of cardiac issues and insulin regime. Pt requested lasix be decreased, however d/t CHF and current low dose not recommended. Pt denying CHF, attempted edu pt and SO about this and about managment. Pt in recliner with foot rest up at shift change, urinal and call lt in reach. Report to AIMEE Hazel. Cont irregular HR.
--- NOTE | 2019-01-11 21:15 | NUR ---
HS meds along with IV antibiotic and insulin reviewed and given. Denies pain. Knee hi eloy hose removed to RLL. LOAN EXAMINER assists patient to bed.
[2019-01-12] VITALS (7 sets, daily range): BP systolic 96–124; BP diastolic 50–66; PULSE 77–105; TEMP 98.1–100.1
--- NOTE | 2019-01-12 01:30 | NUR ---
Patient sits self up on side of bed and uses urinal, staff empties. Nurse assists with blankets and helps position pillow between legs when resting on right side. Denies pain. See I & 0 for urinary outputs.
--- NOTE | 2019-01-12 05:11 | NUR ---
Tele called and reported patient had transcient periods where patients heart rate in 120's but would decrease to 90's to 100's variable flutter. Patient rests on left side at this time with eyes closed, respirations with ease. Patients temp earlier 100.1 and encouraged IS with good effort. Patient reports using IS regularly. Heart rate now 96-101 BPM. Tele to report to nurse elevated heart rates.
--- NOTE | 2019-01-12 06:10 | NUR ---
Tele called and reported patient has sustained for 5 minutes HR in 120's-125. BP 118/58, Respirations 20, Sao1 90% Ra. Patients accu check this am 56 and orange juice 6oz and package of grahams with peanut butter given. Patient states just felt a little hot. Denies shortness of breath or chest pain. Alert and oriented x 4. When nurse intially in patient sitting up using urinal and taking snack. Had snack of package of grahams last night prior to sleep. Dr. Turner notified of above and reported shortly after patient rested back in bed heart rate decreased to 102 BPM. Temp now 98.3. Dr. Turner reports he'll be into day to see patient.
--- NOTE | 2019-01-12 06:29 | NUR ---
Accu check now 80.
[2019-01-12 07:52] LABS: BASO % 0.1 % (0.0-2.0); EOS # 0.2 (0.0-0.7); GRAN # 13.4 (1.4-6.5); GRAN % 84.9 % (42.2-75.2); LYMPH # 1.2 (1.2-3.4); LYMPH % 7.6 % (20.0-51.0); MEAN CELL VOLUME 77 fl (80.0-100.0); MEAN CORPUSCULAR HGB CONC 30 g/dl (33.0-37.0); MEAN PLATELET VOLUME 9.6 fl (7.4-10.4); MONO # 0.8 (0.1-0.6); MONO % 5.2 % (1.7-9.3); PLATELET COUNT 359 K/mm3 (130-400); RED BLOOD COUNT 3.82 M/mm3 (4.20-5.60); REDCELL DISTRIBUTION WIDTH-CV 20.7 % (11.5-14.5)
[2019-01-12 07:58] LABS: HEMATOCRIT 29.3 % (42.0-52.0); HEMOGLOBIN 8.8 g/dl (13.5-18.0); MEAN CORPUSCULAR HEMOGLOBIN 23 pg (27.0-31.0)
[2019-01-12 08:08] LABS: CALCIUM 8.2 mg/dL (8.4-10.2); CREATININE, serum 0.53 (0.66-1.25); MAGNESIUM 1.7 mg/dL (1.6-2.3)
[2019-01-12 08:20] LABS: DIGOXIN 0.5 ng/mL (0.8-2.0)
--- NOTE | 2019-01-12 13:34 | NUR ---
08PT RESTING IN BED WITH LEG ON TWO PILLOWS. DENIES PAIN. LEFT LEG WITH IROM BRACE IN PLACE, NO DRAINAGE NOTED. TEDS PLACED ON RIGHT LEG. SWELLING +2 ON RIGHT FOOT. PT PPP+1. STANDBY ASSIST WITH TRANSFER TO WHEELCHAIR. PERFORMED ADL'S INDEPENDENTLY THIS AM AT THE SINK. IS DONE RAISED TO 2150 X5. NO ALARMS ON THE CHAIR. GAIT BELT USED FOR SAFTEY. PT WANTS TO GO HOME AND WANTS TO BE INDEPENDENT POSSIBLE TO GO HOME SOONER. PT WANATS TO DO EVERYTHING HIMSELF. VOIDING WELL, YELLOW URINE. NO BM OF YET. 0930PT GOES DOWN TO THERAPY WITH STAFF IN WHEELCHAIR. 1030PT HAS AN ORDER FOR LANOXIN 0.5 MG NOW. GIVEN IVSP OVER 5 MINUTES. GOOD BRISK BLOOD RETURN NOTED TO PURPLE LUMEN, REFLUSHED THE RED LUMEN, IT IS HARDER TO FLUSH. ORDER FOR DIG LEVEL IN AM. TODAYS DIG LEVEL IS 0.5. WEIGHT RECORDED. 1130BS 193, INSULIN NOVOLOG 4 UNITS GIVEN INTO LEFT UPPER ABD. 1330FRIENDS VISITING. PT IS UP IN WHEELCHAIR AND MOVES AROUND THE ROOM. NO ALARMS ON.
--- NOTE | 2019-01-12 20:00 | NUR ---
HS meds all reviewed and given. Patient pivot transfers to wheelchair with set up help only then to bathroom. Has medium soft formed bm. Barrier cream applied to inner buttucks for redness and peeling noted. Sit up in recliner. Reports minimal pain.
[2019-01-13 03:19] VITALS: BP 128/71; PULSE 86; TEMP 99.9
--- NOTE | 2019-01-13 05:28 | NUR ---
Patient reports "gone to the bathroom alot tonight". 5 recorded voids noted.
[2019-01-13 11:46] VITALS: BP 120/60; PULSE 66
--- NOTE | 2019-01-13 14:44 | NUR ---
ARTIE DIXON CALLED EARLIER AND SKED ABOUT THE PATIENT. GAVE DETAILS TO MD. PT SLEEPING AT PRESENT. CALL LIGHT IN REACH.
--- NOTE | 2019-01-13 15:33 | NUR ---
S.O. CAME TO VISIT AND BEFORE THAT PT HAD BEEN SLEEPING. GAVE TYLENOL 650 MG FOR SORE LEG
[2019-01-13 17:56] VITALS: BP 105/55; PULSE 80; TEMP 98.8
--- NOTE | 2019-01-13 21:30 | NUR ---
Patient report received from AIMEE Pardo at shift change. Upon assessment at this time patient is resting comfortably in bed. Denies pain to left lower extremity. BS = 121 tonight, snack offered, patient requested meat and cheese to be given later upon request. PICC to right upper arm. Ice chips given per request. No other needs reported/observed.
[2019-01-14 05:22] VITALS: BP 116/63; PULSE 95; TEMP 98.9
[2019-01-14 05:51] LABS: BASO % 0.1 % (0.0-2.0); EOS # 0.1 (0.0-0.7); EOS % 0.6 % (0-4.0); GRAN # 14.8 (1.4-6.5); GRAN % 84.5 % (42.2-75.2); HEMATOCRIT 29.2 % (42.0-52.0); LYMPH # 1.4 (1.2-3.4); LYMPH % 8.2 % (20.0-51.0); MEAN CELL VOLUME 76 fl (80.0-100.0); MEAN CORPUSCULAR HEMOGLOBIN 23 pg (27.0-31.0); MEAN CORPUSCULAR HGB CONC 31 g/dl (33.0-37.0); MEAN PLATELET VOLUME 8.9 fl (7.4-10.4); MONO % 5.9 % (1.7-9.3); PLATELET COUNT 356 K/mm3 (130-400); RED BLOOD COUNT 3.87 M/mm3 (4.20-5.60); REDCELL DISTRIBUTION WIDTH-CV 20.1 % (11.5-14.5)
[2019-01-14 06:03] LABS: CALCIUM 8.5 mg/dL (8.4-10.2); CREATININE, serum 0.6 (0.66-1.25); MAGNESIUM 1.7 mg/dL (1.6-2.3); POTASSIUM 4.7 mmol/L (3.4-5.0)
--- NOTE | 2019-01-14 07:10 | NUR ---
NURSE CONTACTED. PT MAINTAINING HR ABOVE 120 TO HR OF 130.
--- NOTE | 2019-01-14 07:14 | NUR ---
Patient report given to AIMEE Shrestha. Patient up to wheelchair this morning. No needs reported.
--- NOTE | 2019-01-14 08:51 | NUR ---
Tele called x2 this morning, reports pt's HR >120, notified Dr. Shook who ordered to have tele limit raised to 130 and consult cardiology, Dr. Hernandez electronic commerce specialist, phoned and reports pt will be seen today. Pt denies symptoms.
--- NOTE | 2019-01-14 10:32 | NUR ---
Dr. Hernandez here to see pt.
[2019-01-14 11:53] VITALS: BP 88/51; PULSE 66; TEMP 98
[2019-01-14 12:50] VITALS: BP 86/65
--- NOTE | 2019-01-14 14:17 | NUR ---
KEDAR met with the patient to check-in with after the weekend and to schedule a family meeting. The patient reports that he is doing well and feels that he has been doing good with therapy. He states that his family built him a wheelchair ramp and that he is eager to get home to try doing things on his own. A family meeting was scheduled for this Monday, 01/16. at 1345. KEDAR informed IPR Director. KEDAR to continue to follow.
[2019-01-14 16:47] VITALS: BP 99/52; PULSE 82; TEMP 97.6
[2019-01-14 19:15] LABS: COLLECTION METHOD CLEAN CATCH
[2019-01-14 19:20] LABS: MUCOUS Present /lpf; PH 5 (5-8); SQUAMOUS EPITHELIAL 0-2 /hpf; URINE APPEARANCE Clear; URINE BACTERIA None Seen /hpf; URINE BILIRUBIN Negative (NEGATIVE); URINE BLOOD Negative (NEGATIVE); URINE COLOR Yellow; URINE GLUCOSE Negative (NEGATIVE); URINE KETONE Trace (NEGATIVE); URINE LEUKOCYTE ESTERASE Negative (NEGATIVE); URINE NITRATE Negative (NEGATIVE); URINE PROTEIN(semi-quant) Negative (NEGATIVE); URINE RBC 0-2 /hpf; URINE UROBILINOGEN Negative (NEGATIVE)
--- NOTE | 2019-01-14 20:32 | NUR ---
Infectious disease has new orders for labs and meds due to elevated WBC, suspect skin/incision infection. Pt's SO visited today, updated her and pt on changes. Cont to have low BP's, parameters for toprol. CANDE hose and gripper sock to RLE, bret and immobilizer to LLE. Report to AIMEE Eastman.
[2019-01-15 04:39] VITALS: BP 105/61; PULSE 88; TEMP 98.8
--- NOTE | 2019-01-15 07:15 | NUR ---
Patient report given to AIMEE Meza. Patient resting comfortably in bed. Saline locked PICC. No needs reported.
--- NOTE | 2019-01-15 09:47 | NUR ---
Initial visit; Patient thanked Mink Slicer for offering spiritual care. Patient received a call, Mink Slicer will follow up another time.
[2019-01-15 16:23] VITALS: BP 95/55; PULSE 86; TEMP 99.5
[2019-01-15 18:07] VITALS: TEMP 97.5
--- NOTE | 2019-01-15 18:14 | NUR ---
Patient resting in recliner at this time, call light in reach and independent in room with wheelchair. Patient attended all therapies today. Is visiting with old neighbor at this time.
--- NOTE | 2019-01-15 19:30 | NUR ---
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 Susana YU received order to just reinforce dressing. Dressing reinforced with 1 ABD anteriorly and overlapped with 1 ABD posteriorly then secured with kerlix and bret bandage. 2 female visitors in with patient. Patient denies pain or needs. Will call for assist with IV pole if gets up. Currently sits up in recliner with legs elevated.
--- NOTE | 2019-01-15 20:24 | NUR ---
Patient resting in bed at this time, call light in reach and is independent in room with his wheelchair. Patient had some drainage to his left stump and Dr. Diane was contacted. Received orders that okay to reinforce stump and Dr. Diane will be seeing patient tomorrow.
--- NOTE | 2019-01-15 20:33 | NUR ---
Dr. Barr called and asked about a wound culture for the left stump of patient. Left message for Dr. Diane about this for tomorrow morning.
--- NOTE | 2019-01-16 00:45 | NUR ---
Patient rests with eyes closed. Respirations with ease.
--- NOTE | 2019-01-16 03:18 | NUR ---
Patient resting with eyes closed. Respirations with ease.
[2019-01-16 05:27] VITALS: BP 109/56; PULSE 97; TEMP 97.9
[2019-01-16 07:10] LABS: BASO % 0.3 % (0.0-2.0); EOS # 0.1 (0.0-0.7); EOS % 0.5 % (0-4.0); GRAN # 12.9 (1.4-6.5); GRAN % 84.9 % (42.2-75.2); LYMPH # 1.1 (1.2-3.4); LYMPH % 6.9 % (20.0-51.0); MEAN CELL VOLUME 76 fl (80.0-100.0); MEAN CORPUSCULAR HGB CONC 30 g/dl (33.0-37.0); MEAN PLATELET VOLUME 8.9 fl (7.4-10.4); MONO % 6.7 % (1.7-9.3); PLATELET COUNT 347 K/mm3 (130-400); RED BLOOD COUNT 3.39 M/mm3 (4.20-5.60); REDCELL DISTRIBUTION WIDTH-CV 19.8 % (11.5-14.5)
[2019-01-16 07:16] LABS: HEMATOCRIT 25.6 % (42.0-52.0); HEMOGLOBIN 7.7 g/dl (13.5-18.0); MEAN CORPUSCULAR HEMOGLOBIN 23 pg (27.0-31.0)
[2019-01-16 07:32] LABS: CALCIUM 7.9 mg/dL (8.4-10.2); CREATININE, serum 0.67 (0.66-1.25); MAGNESIUM 1.7 mg/dL (1.6-2.3); POTASSIUM 4.1 mmol/L (3.4-5.0)
[2019-01-16 07:45] LABS: C-REACTIVE PROTEIN 16.6 mg/dL (0.0-0.9)
--- NOTE | 2019-01-16 10:07 | NUR ---
Follow-up visit; Alcon requested prayer today. Systems Admin offered encouragement and prayer for Alcon's recovery.
--- NOTE | 2019-01-16 16:20 | NUR ---
KEDAR attended a family meeting with the patient and patient's girlfriend, Adalgisa. Also present was IPR Director, PT, & OT. IPR Director started by explaining the purpose of the meeting. PT & OT then discussed how the patient is doing with the recommendation of needing a wheelchair with elevating leg rests and a tub transfer bench. They then discussed the tentative plan for a discharge on Monday, 01/18, with home health and the need for antibiotics. The patient reports that he is in agreeance to the plan. Him and his girlfriend report that ortho is not recommending any additional therapies until his stitches are out. KEDAR then followed up with the patient and his girlfriend and discussed DME companies for the wheelchair and presented and explained the patient choice form for DME. The patient chose [facility]. The patient signed and he was provided a copy. KEDAR contacted and faxed the patient's wheelchair order to [facility]. [facility] reports that they can deliver the wheelchair to the patient's room on Monday. KEDAR updated the patient and presented and reviewed the IPR Team Conference Note with the patient. The patient had no other questions or concerns at this time. KEDAR awaiting Infectious Disease recommendation for antibiotic. KEDAR to continue to follow.
[2019-01-16 17:17] VITALS: BP 90/46; PULSE 76; TEMP 99.2
[2019-01-16 20:34] VITALS: BP 101/51; PULSE 73; TEMP 98.2
[2019-01-16 22:00] VITALS: BP 91/46; PULSE 71; TEMP 99.2
--- NOTE | 2019-01-16 22:00 | NUR ---
Vandana MCCANN notified of patient BP 91/46 HR 71 Temp 99.2 and states OK to give scheduled digoxin and amiodarone. Patient initially reports upset stomach and asking for pepto bismol then reports he just doesn't want have a bowel accident. Reports 5 soft bms today but not liquidy, no odor. New orders received. Patient declines maalox at this time. Reports his stomach really isn't upset. Snack of grahams and pudding given for accu check 80. Transfers self to bed/sways but steadies self. Dressing to [facility].
--- NOTE | 2019-01-16 23:00 | NUR ---
PATIENT RESTS IN BED WITH EYES CLOSED. RESPIRATIONS WITH EASE.
--- NOTE | 2019-01-17 01:00 | NUR ---
Patient awakened to start IV zosyn. Denies needs.
--- NOTE | 2019-01-17 03:00 | NUR ---
PATIENT AWAKE AND SALESPERSON HOUSEHOLD APPLIANCES ASSISTS WITH IV POLE TO THE BATHROOM. PATIENT HAS 4TH LOOSE BROWN BM THIS SHIFT. RESTS BACK IN BED.
[2019-01-17 06:00] VITALS: BP 106/59; PULSE 77; PULSE 91; TEMP 99
--- NOTE | 2019-01-17 09:16 | NUR ---
At first, unable to flush nor get blood return to purple port of PICC, red port was sluggish, changed pt's position and had him cough. Red port flushed, then attempted purple and eventually it flushed with resistance, was able to obtain blood return, flushed extra NS.
--- NOTE | 2019-01-17 09:17 | NUR ---
Pt c/o multiple loose stools this morning, gave derrell Aguilar to participate in therapies as they are unable to change schedule today and this is final eval for therapy today.
--- NOTE | 2019-01-17 10:44 | NUR ---
Informed Dr. Barr of pt's diarrhea, pt reports it is watery to loose, did firm up last night, but 4 stools this morning, pt states it is brown in color.
--- NOTE | 2019-01-17 10:55 | NUR ---
SW followed up with the patient to discuss getting home health started for occupational therapy and then how they can add on physical therapy, once cleared by ortho. The patient was in agreeance to this. SW presented the patient with Medicare.gov's list of home health agencies that serve [place]. The [facility]. KEDAR contacted and faxed a referral to [facility]. SW awaiting their screening and awaiting ID's recommendations.
--- NOTE | 2019-01-17 13:59 | NUR ---
Notified Dr. Diane's nurse Vianca that pt's dressing saturated through distal end of stump, has temp up to 99.2, WBC up to 17 recently, and supposed to go home tomorrow, ID following. Aware, she will return call.
[2019-01-17 17:15] VITALS: BP 94/45; PULSE 71; TEMP 98.4
--- NOTE | 2019-01-17 20:00 | NUR ---
SHIFT REPORT OBTAINED FROM YESSICA TSAI RN. PT RESTING IN RECLINER. GIRLFRIEND HERE TO VISIT. TALKING ABOUT DISCHARGE TOMORROW. LT STUMP DRSG INTACT. NO SATURATION THROUGH ADDITIONAL DRSG'S APPLIED BY YESSICA YU EARLIER. CONTINUED 1500CC/DAY FLUID RESTRICTION D/T HYPONATREMIA. IMMODIUM 2MG GIVEN FOR LOOSE STOOLS. PT MOD I IN ROOM.
--- NOTE | 2019-01-17 22:31 | NUR ---
Ortho nurse reports they will check pt's dressing in the morning. Stool for C. diff was negative, informed pt to ask for imodium PRN diarrhea. PICC to removed prior to discharge. Pt declined having f/u appt with behavioral health as he is not as depressed as he was upon admission. Provided list of f/u appts. Report to AIMEE Weber.
--- NOTE | 2019-01-18 05:46 | NUR ---
BARRIER OINTMENT APPLIED TO INNER BUTTOCK- IMPROVING. SKIN PEELING SLIGHTLY. STILL RED.
--- NOTE | 2019-01-18 06:00 | NUR ---
DR MCMULLEN HERE. CHANGED LT STUMP DRSG. PT INO WELL. DR GAVE VERBAL INSTRUCTIONS TO ELEVATE STUMP, TAKE IT EASY AND SEE HIM IN THE OFFICE NEXT WEEK.
[2019-01-18 06:20] VITALS: BP 105/54; PULSE 79; TEMP 98.7
[2019-01-18 07:35] LABS: BASO % 0.3 % (0.0-2.0); EOS # 0.1 (0.0-0.7); EOS % 1.5 % (0-4.0); GRAN # 6.7 (1.4-6.5); LYMPH # 1.1 (1.2-3.4); LYMPH % 12.9 % (20.0-51.0); MEAN CELL VOLUME 76 fl (80.0-100.0); MEAN CORPUSCULAR HGB CONC 29 g/dl (33.0-37.0); MEAN PLATELET VOLUME 8.7 fl (7.4-10.4); MONO # 0.8 (0.1-0.6); MONO % 8.7 % (1.7-9.3); PLATELET COUNT 251 K/mm3 (130-400); REDCELL DISTRIBUTION WIDTH-CV 19.4 % (11.5-14.5)
[2019-01-18 07:46] LABS: HEMATOCRIT 24.2 % (42.0-52.0); HEMOGLOBIN 7.1 g/dl (13.5-18.0); MEAN CORPUSCULAR HEMOGLOBIN 22 pg (27.0-31.0)
--- NOTE | 2019-01-18 09:37 | NUR ---
ID is recommending oral antibiotics. Nery, at [facility] reports that they can accept the patient for services. Nolan, at [facility], reports that they will be delivering his wheelchair to his room today. SW to continue to follow.
--- NOTE | 2019-01-18 09:46 | NUR ---
Patient resting in recliner at this time, call light in reach and is independent in his room. Patient tolerating diet well today. Patient will be discharging this afternoon following getting another IV antibiotic. He will be discharged on po meds not IV meds per Dr. Barr. Patient is afebrile this morning. Was given prn imodium to help firm up loose stool. Patient denies pain at this time.
--- NOTE | 2019-01-18 11:43 | NUR ---
Patient resting in recliner at this time, call light in reach and visiting with Dr. Mohan. Patient has a Stage I blanchable reddened area to his right buttock cheek that is being monitored. Patient has refused putting any mepilex on area, refused using a cushion for his chair and refused the use of an air mattress. Patient was seen by Dr. Diane this morning and he assessed and changed out dressing to left stump. Denies pain at this time. Will continue to monitor.
[2019-01-18] MEDS ORDERED: FERRO-TIME325 MG PO (11:56)
[2019-01-18] MEDS ORDERED: CEFTIN500 MG PO (11:56)
[2019-01-18] MEDS ORDERED: DOXYCYCLINE 10100 MG PO (11:56)
[2019-01-18] MEDS ORDERED: TOPROL XL 25MG25 MG PO (12:02)
[2019-01-18] MEDS ORDERED: PACERONE200 MG PO (12:02)
[2019-01-18] MEDS ORDERED: DIGITEK0.125 MG PO (12:02)
[2019-01-18] MEDS ORDERED: MAG-OX 400400 MG/TAB PO (12:03)
[2019-01-18] MEDS ORDERED: PROTONIX 40MG T40 MG PO (12:04)
[2019-01-18] MEDS ORDERED: BASAGLAR K100 UNIT/1 SQ (12:04)
--- NOTE | 2019-01-18 13:23 | NUR ---
[facility] delivered the patient's wheelchair. The patient is to discharge back home with his girlfriend today, 01/18, with home health services for PT/OT through [facility]. SW contacted and faxed the patient's discharge orders to [facility]. No additional needs at this time.
--- NOTE | 2019-01-18 15:40 | NUR ---
Patient Health Summary, Discharge Summary, and Home Meds printed and reviewed with patient and his sister. Stressed importance of follow up appointments. Called prescriptions for Gabapentin, Furosemide and Atorvastatin to pharmacy of choice due to changes in dosage. Discussed the need for him to follow up with his pcp/ortho physician regarding labs, CBC most importantly due to Hgb trending downward. Patient's belongings gathered by Susana/RN including glasses, cell phone, dry pan charger, clothes and shoes. Patient was transported via wheelchair by DRUM DYEING MACHINE OPERATOR/Demi and seatbelted for ride home. Patient and sister denied any questions. Home Health called and reported that they would be seeing patient on Monday afternoon at 1 PM. Patient is aware of this and will fill his med boxes up through Monday and HH will then work with him on filling the other days up. Patient voiced understanding. Dr. Diane changed patient dressing early this morning and there were no changes to patient's orders. Dr. Mohan changed meds from IV to PO meds this morning per recommendations from Dr. Barr.
--- NOTE | 2019-01-22 08:55 | NUR ---
SW received a fax from [facility] reporting that the patient is refusing services for OT/PT and alf and that he is reporting that his girlfriend can take care of him.
--- NOTE | 2019-01-25 15:06 | NUR ---
Discharge FIM scores for 01/17/19 were reviewed by the team. Team determined the nursing score of (5) for bed, chair, w/c transfers did not allow for pt to be Mod I as he had been & therefore, should not had been scored.--Cinthya Montalvo, PD
== END 2019-01-18 15:40 | disposition home health service (06) | DRG 947 ==
PROVIDERS: Internal Medicine Infectious Disease; Nurse Practitioner Family; ADMIT Internal Medicine
DX: R53.81 Other malaise (principal); A40.9 Streptococcal sepsis, unspecified; R65.21 Severe sepsis with septic shock; I50.22 Chronic systolic (congestive) heart failure; M86.9 Osteomyelitis, unspecified; E87.1 Hypo-osmolality and hyponatremia; I48.91 Unspecified atrial fibrillation; I11.0 Hypertensive heart disease with heart failure; E83.42 Hypomagnesemia; D50.0 Iron deficiency anemia secondary to blood loss (chronic); I95.9 Hypotension, unspecified; R00.0 Tachycardia, unspecified; I25.10 Atherosclerotic heart disease of native coronary artery without angina pectoris; E11.42 Type 2 diabetes mellitus with diabetic polyneuropathy; E11.65 Type 2 diabetes mellitus with hyperglycemia; E11.621 Type 2 diabetes mellitus with foot ulcer; E11.69 Type 2 diabetes mellitus with other specified complication; E83.39 Other disorders of phosphorus metabolism; L97.529 Non-pressure chronic ulcer of other part of left foot with unspecified severity; Z79.82 Long term (current) use of aspirin; Z79.4 Long term (current) use of insulin; Z79.01 Long term (current) use of anticoagulants; Z89.512 Acquired absence of left leg below knee; Z95.1 Presence of aortocoronary bypass graft
CPT/HCPCS: 99222-AI; 99232-AI; 99233-AI; 99239; J0696; J1160; J1815; J2543; J3370; J7050

== ENCOUNTER 2019-11-27 11:19 | Day surgery (SDC) | payer BC ==
[~2019-11-27 11:19] MED LIST changes: +CEFTIN500 MG PO; +DIGITEK0.125 MG PO; +DOXYCYCLINE 10100 MG PO; +FERRO-TIME325 MG PO; +MAG-OX 400400 MG/TAB PO; +PROTONIX 40MG T40 MG PO; +TOPROL XL 25MG25 MG PO
[2019-11-27 11:53] LABS: INR 1.1 (0.8-3.0); PROTHROMBIN TIME 12.2 SECONDS (9.7-12.8)
[2019-11-27 11:58] VITALS: BP 124/80; PULSE 51; TEMP 98.3
[2019-11-27] MEDS ORDERED: TYLENOL 500MG500 MG PO (12:15)
[2019-11-27] MEDS ORDERED: CORDARONE200 MG/TAB PO (12:17)
[2019-11-27] MEDS ORDERED: LIPITOR20 MG PO (12:22)
[2019-11-27] MEDS ORDERED: LANOXIN 0.120.125 MG PO (12:22)
[2019-11-27] MEDS ORDERED: LASIX 20MG TABL20 MG PO ×3 (12:23→14:09)
[2019-11-27] MEDS ORDERED: NEURONTIN100 MG/CAP PO (12:25)
[2019-11-27] MEDS ORDERED: BASAGLAR K100 UNIT/1 SQ (12:29)
[2019-11-27] MEDS ORDERED: MAG-OX 400400 MG/TAB PO (12:30)
[2019-11-27] MEDS ORDERED: GLUCOPHAGE1000 MG PO (12:31)
[2019-11-27] MEDS ORDERED: TOPROL XL 25MG25 MG PO (12:32)
[2019-11-27] MEDS ORDERED: PROTONIX 40MG T40 MG PO (12:34)
[2019-11-27] MEDS ORDERED: FLOMAX 0.40.4 MG/CAP PO (12:35)
[2019-11-27] MEDS ORDERED: COREG 6.256.25 MG/TA PO (12:36)
[2019-11-27 12:37] LABS: THYROID STIMULATING HORMONE 4.52 uIU/mL (0.465-4.680)
--- NOTE | 2019-11-27 13:50 | NUR ---
PROCEDURE COMPLETE. BS REPORT RECEIVED FROM RL YU. PT IS DROWSY, P,W,D WITH REG AND UNLABORED RESPS. WCTM.
[2019-11-27 13:51] VITALS: BP 111/64; PULSE 44
[2019-11-27 14:05] VITALS: BP 122/71; PULSE 44
[2019-11-27 14:25] VITALS: BP 123/85; PULSE 54
[2019-11-27 14:50] VITALS: BP 126/79; PULSE 62
[2019-11-27 15:20] VITALS: BP 129/75; PULSE 59
--- NOTE | 2019-11-27 16:00 | NUR ---
PT IS AWAKE AND ALERT, READY FOR DISCHARGE. PT IS AMBULATORY WITH STEADY GAIT WITH HIS PROSTHETIC IN PLACE. HE HAS BEEN ABLE TO DRINK WATER WITH NO PROBLEM. I REVIEWED DISCHARGE/FOLLOW UP AND RX INSTRUCTIONS WITH PT AND HIS . THEY VERBALIZED UNDERSTANDING. IV WAS DC'D WITH CATH INTACT, DRESSING APPLIED. PT WAS GIVEN IV LASIX 20 MG PER TELEPHONE ORDER FROM DR. BRIZUELA PRIOR TO DC'ING HIS IV. PLEASE SEE PHYSICIAN NOTIFICATION. PT SENT HOME WITH A URINAL. PT IS ESCORTED TO EXIT VIA WHEELCHAIR.
== END 2019-11-27 16:05 | disposition home or self-care (01) ==
LOC: COL.CAR 11:19
PROVIDERS: Internal Medicine Cardiovascular Disease
DX: I34.0 Nonrheumatic mitral (valve) insufficiency (principal); E78.5 Hyperlipidemia, unspecified; I25.10 Atherosclerotic heart disease of native coronary artery without angina pectoris; I48.92 Unspecified atrial flutter; I11.0 Hypertensive heart disease with heart failure; I50.22 Chronic systolic (congestive) heart failure; I48.0 Paroxysmal atrial fibrillation; Z79.82 Long term (current) use of aspirin; I25.2 Old myocardial infarction; D64.9 Anemia, unspecified; Z95.1 Presence of aortocoronary bypass graft; Z79.4 Long term (current) use of insulin; Z79.01 Long term (current) use of anticoagulants; Z88.0 Allergy status to penicillin; Z89.512 Acquired absence of left leg below knee; Z79.02 Long term (current) use of antithrombotics/antiplatelets
CPT/HCPCS: J1940; J2704; J3010; J7030

== ENCOUNTER 2020-04-27 07:48 | Day surgery (SDC) | payer BC ==
[~2020-04-27] VITALS: Ht 180.3 cm; Wt 102.0 kg
[~2020-04-27 07:48] MED LIST changes: +CORDARONE200 MG/TAB PO; +LANOXIN 0.120.125 MG PO; +TYLENOL 500MG500 MG PO
[2020-04-27] MEDS ORDERED: LASIX 20MG TABL20 MG PO (08:48)
[2020-04-27] MEDS ORDERED: NITROSTAT0.4 MG/TAB SL (08:49)
[2020-04-27] MEDS ORDERED: VICODIN ES 7.5 PO (08:49)
[2020-04-27] MEDS ORDERED: HUMULIN R 10100 U/ML SQ (08:51)
[2020-04-27 09:25] VITALS: BP 148/95; PULSE 88; TEMP 98.7
[2020-04-27 09:32] LABS: INR 1.1 (0.8-3.0); PROTHROMBIN TIME 12.1 SECONDS (9.7-12.8)
[2020-04-27 09:35] LABS: POTASSIUM 4.8 mmol/L (3.4-5.0)
[2020-04-27 10:08] LABS: THYROID STIMULATING HORMONE 4.44 uIU/mL (0.465-4.680)
[2020-04-27 11:30] VITALS: BP 92/60; PULSE 49
--- NOTE | 2020-04-27 11:30 | NUR ---
REPORT FROM ZEN YU AFTER PROCEDURE, PT IS AWAKE AND ALERT, STATES DOES NOT REMEMBER PROCEDURE, NO C/O. ORDER TO TAKE XARELTO BEFORE DISCHARGE, 20MG PO GIVEN ORDERED, PT REQUESTS ONLY WATER AT THIS TIME.
[2020-04-27 11:45] VITALS: BP 112/79; PULSE 55
[2020-04-27 12:00] VITALS: BP 115/77; PULSE 54
--- NOTE | 2020-04-27 12:00 | NUR ---
DISCHARGE INST. GIVEN TO PT WITH MODEREATE SEDATION AND LIBORIO/CARDIOVERSION, WITH VERBAL UNDERSTANDING. DR BRIZUELA IN ROOM, CHANGES PT DOSE OF METROLOPOL TO 50MG NOT 75MG, PT TAKES 25MG TABS, SO WILL TAKE 2 TABS NOW, WRITTEN ON MED LIST FOR PT, ALSO LEFT MESSAGE AT OFFICE FOR 2 WEEK FOLLOWUP APPT, INST. TO CALL PT ON TIME. INT D'CD PT UP IN ROOM DRESSED
[2020-04-27 12:15] VITALS: BP 118/77; PULSE 55
--- NOTE | 2020-04-27 12:25 | NUR ---
PT DISCHARGED VIA W/C TO CAR WITH
== END 2020-04-27 12:25 | disposition home or self-care (01) ==
LOC: COL.CAR 07:48
PROVIDERS: Internal Medicine Cardiovascular Disease
DX: I48.92 Unspecified atrial flutter (principal); I48.91 Unspecified atrial fibrillation; I11.0 Hypertensive heart disease with heart failure; I50.22 Chronic systolic (congestive) heart failure; I25.10 Atherosclerotic heart disease of native coronary artery without angina pectoris; E11.9 Type 2 diabetes mellitus without complications; Z79.899 Other long term (current) drug therapy; Z79.4 Long term (current) use of insulin; E78.5 Hyperlipidemia, unspecified; I51.3 Intracardiac thrombosis, not elsewhere classified; I99.8 Other disorder of circulatory system; I34.0 Nonrheumatic mitral (valve) insufficiency; Z89.512 Acquired absence of left leg below knee; Z95.1 Presence of aortocoronary bypass graft; Z87.891 Personal history of nicotine dependence; Z88.0 Allergy status to penicillin
CPT/HCPCS: J2704; J7030

== ENCOUNTER 2020-06-05 08:59 | Day surgery (SDC) | payer BC ==
[2020-06-05] VITALS (9 sets, daily range): BP systolic 110–134; BP diastolic 62–84; PULSE 45–55; TEMP 97.8
[~2020-06-05] VITALS: Ht 180.3 cm; Wt 105.2 kg
[~2020-06-05 08:59] MED LIST changes: +HUMULIN R 10100 U/ML SQ; +NITROSTAT0.4 MG/TAB SL; +VICODIN ES 7.5 PO
[2020-06-05 09:52] LABS: MEAN CELL VOLUME 86 fl (80.0-100.0); MEAN CORPUSCULAR HGB CONC 31 g/dl (33.0-37.0); MEAN PLATELET VOLUME 10.3 fl (7.4-10.4); PLATELET COUNT 197 K/mm3 (130-400); RED BLOOD COUNT 3.76 M/mm3 (4.20-5.60)
[2020-06-05 09:53] LABS: INR 1.2 (0.8-3.0); PROTHROMBIN TIME 13.7 SECONDS (9.7-12.8)
[2020-06-05 09:56] LABS: HEMATOCRIT 32.2 % (42.0-52.0); HEMOGLOBIN 9.9 g/dl (13.5-18.0); MEAN CORPUSCULAR HEMOGLOBIN 26 pg (27.0-31.0)
[2020-06-05 09:57] LABS: CALCIUM 9.1 mg/dL (8.4-10.2); CREATININE, serum 1.39 (0.66-1.25)
--- NOTE | 2020-06-05 15:51 | NUR ---
SEE MEREHERB FOR ALL MEDICATION ADMINISTRATION TIMES, INTRA AND POST SEDATION ASSESSMENTS
--- NOTE | 2020-06-05 16:45 | NUR ---
Report from Julia YU. Transferred from laborer road by bed. 15 cc air in right Tband, good pulses and cap refill < 3 secs. VSS
--- NOTE | 2020-06-05 19:17 | NUR ---
15 cc air released from right Tband and pressure dressing applied. INT discontinued intact.
--- NOTE | 2020-06-05 19:24 | NUR ---
Discharge instructions given. Transferred to private car by gino
== END 2020-06-05 19:25 | disposition home or self-care (01) ==
LOC: COL.CAR 08:59
PROVIDERS: Internal Medicine Cardiovascular Disease
DX: I25.10 Atherosclerotic heart disease of native coronary artery without angina pectoris (principal); I48.0 Paroxysmal atrial fibrillation; I11.0 Hypertensive heart disease with heart failure; I50.22 Chronic systolic (congestive) heart failure; I51.3 Intracardiac thrombosis, not elsewhere classified; E78.5 Hyperlipidemia, unspecified; Z79.4 Long term (current) use of insulin; Z88.0 Allergy status to penicillin; Z95.1 Presence of aortocoronary bypass graft
CPT/HCPCS: J1644; J2250; J3010; J7030